=== PATIENT | male | born 1980 | race Caucasian/White ===

== ENCOUNTER 2024-11-27 04:05 | Emergency (ER) | payer OTHER ==
[~2024-11-27] VITALS: Ht 193 cm; Wt 98.9 kg
[2024-11-27] MEDS: DEXAMETHASONE SOD PHOS INJ 4 MG/ML SDV IM ONE (05:11)
[2024-11-27] MEDS: ALBUTEROL/IPRATROPIUM 3 ML NEB NEB ONE (05:12)
[2024-11-27] MEDS ORDERED: VENTOLIN HFA18 GM INH (05:13)
[2024-11-27] MEDS ORDERED: THERAFLU SEVER1 EAC4 PO (05:13)
[2024-11-27] MEDS ORDERED: AZITHROMYCIN250 MG PO (05:13)
[2024-11-27 05:33] VITALS: PULSE 87; RESP 20; TEMP 97.6
[2024-11-27 05:34] VITALS: BP 140/82; PULSE 86; RESP 18; TEMP 97.6; O2SAT 99
== END 2024-11-27 05:32 | disposition home or self-care (01) ==
LOC: FSED 04:12
DX: R05.9 Cough, unspecified (principal); J40 Bronchitis, not specified as acute or chronic; J06.9 Acute upper respiratory infection, unspecified
CPT/HCPCS: 0223U; 71046; 83518; 87400; 96372; 99284; J1100

== ENCOUNTER 2024-12-01 02:13 | Emergency (ER) | payer OTHER ==
[~2024-12-01] VITALS: Ht 193 cm; Wt 98.9 kg
[~2024-12-01 02:13] MED LIST: AZITHROMYCIN250 MG PO; THERAFLU SEVER1 EAC4 PO; VENTOLIN HFA18 GM INH
[2024-12-01 02:17] VITALS: PULSE 86; RESP 18; TEMP 98.6
[2024-12-01] MEDS: KETOROLAC TROMETHAMINE 30 MG/ML VIAL IM STA (02:55)
[2024-12-01 03:03] VITALS: BP 156/93; PULSE 86; RESP 18; TEMP 98.6; O2SAT 98
[2024-12-01] MEDS ORDERED: CETIRIZINE HCL10 MG PO (03:03)
[2024-12-01] MEDS ORDERED: PEPCID20 MG PO (03:03)
== END 2024-12-01 03:11 | disposition home or self-care (01) ==
LOC: FSED 02:17
DX: R05.9 Cough, unspecified (principal); J04.0 Acute laryngitis; R09.89 Other specified symptoms and signs involving the circulatory and respiratory systems
CPT/HCPCS: 99283; J1885